=== PATIENT | female | born 1935 | race Caucasian/White ===

== ENCOUNTER 2017-06-26 16:17 | Inpatient (IN) | payer MEDICARE, OTHER ==
--- NOTE | 2017-06-26 17:06 | ED Physician Chart ---
ED Chief Complaint/HPI - Patient Information Date Seen:: 06/26/17 Time Seen:: 17:06 Chief Complaint:: Increased agitation, increased confusion History of Present Illness:: 81 yo female was brought by a caregiver from a care facility to ER for evaluation of increased agitation and confusion. She was noted to have aggressive behaviors toward other residents. Allergies:: Allergies Allergy/AdvReac Type Severity Reaction Status Date / Time No Known Allergies Allergy Verified 06/26/17 16:39 Vitals:: Vital Signs - 8 hr 06/26/17 16:43 Temp 98.3 F HR 64 RR 16 BP 128/63 O2 Sat % 97 ED Review of Systems - Review of Systems General/Constitutional: No fever, No chills Skin: No skin lesions Head: No headache Eyes: No loss of vision ENT: No earache Neck: No neck pain Cardio Vascular: No chest pain Pulmonary: No SOB GI: No nausea, No vomiting Musculoskeletal: No bone or joint pain Psychiatric: Prior psych history Neurological: No focal symptoms ED Past Medical History - Past Medical History Past Medical History: PUD/GERD, Dementia, Other (UTI, weakness, anxiety, insomnia, anemia) Social History: Non Smoker, No Alcohol, No Drug Use Family Medical History - Family Member Mother History Unknown: Yes ED Physical Exam - Physical Examination General/Constitutional: Awake Other Gen/Cons comments:: confused Head: Atraumatic Eyes: PERRL, EOMI Skin: No ecchymosis ENMT: Nasal exam nl Neck: No nuchal rigidity Respiratory: Clear to Auscultation, No Wheeze/Rhonchi/Rales Cardio Vascular: RRR, No murmur, gallop, rubs, NL S1 S2 GI: No tenderness/rebounding/guarding Extremities: No edema Neuro/Psych: No focal deficits ED Labs/Radiology/EKG Results - Radiology Results Results: CXR: no consolidation ED Assessment - Assessment General Assessment: Psychosis Dementia Critical Care Time: 30 min Excludes all billable procedures: Yes This condition life threatening/high prob of deterioration: No Assessment/Comments:: CBC, CMP, CXR Psych evaluation Admit to psych unit ED Septic Shock - . Is Septic Shock (SBP<90, OR Lactate>4 mmol\L) present?: No - <6hrs of presentation: Vital Signs: Vital Signs - 8 hr 06/26/17 16:43 Temp 98.3 F HR 64 RR 16 BP 128/63 O2 Sat % 97 ED Reassessment (Disposition) - Reassessment Reassessment Condition:: Unchanged - Patient Disposition Discharge/Transfer:: Acute Care w/in this hosp ED Discharge Plan - Patient Disposition Admit/Discharge/Transfer: Other Care w/in this hosp Condition at Disposition: Guarded
[2017-06-26 17:32] LABS: % BASOPHILS 0.8 % (0.0-2.0); % EOSINOPHILS 3.9 % (0.0-5.0); % MONOCYTES 9.5 % (2.0-10.0); % NEUTROPHILS 51.8 % (40.0-80.0); BASOPHILE ABSOLUTE 0.1 Th/cumm (0-0.2); EOSINOPHILE ABSOLUTE 0.3 Th/cmm (0.1-0.4); HEMATOCRIT 35.5 % (41.0-60); HEMOGLOBIN 11.9 gm/dL (12-16); LYMPHOCYTE ABSOLUTE 2.9 Th/cmm (1.5-3.0); MEAN CELL VOLUME 91.8 fl (81-100); MEAN CORPUSCULAR HEMOGLOBIN 30.8 pg (27.0-31.0); MEAN CORPUSCULAR HGB CONC 33.5 pg (28.0-36.0); MEAN PLATELET VOLUME 8.1 fl; MONOCYTE ABSOLUTE 0.8 Th/cmm (0.3-1.0); NEUTROPHILE ABSOLUTE 4.5 Th/cmm (1.8-8.0); PLATELET COUNT 252 Th/cmm (150-400); RED BLOOD COUNT 3.86 Mil/cmm (3.80-5.20); RED CELL DISTRIBUTION WIDTH 13.4 % (11.5-20.0); WHITE BLOOD COUNT 8.6 Th/cmm (4.8-10.8)
[2017-06-26 17:47] LABS: ALB/GLOB RATIO 1.5 (1.0-1.8); ALBUMIN 3.8 gm/dL (3.7-5.3); ALKALINE PHOSPHATASE 81 U/L (34-104); ANION GAP 9.3 (7.0-16.0); BILIRUBIN,TOTAL 0.3 mg/dL (0.3-1.0); BUN - UREA NITROGEN 28 mg/dL (7-25); CARBON DIOXIDE 28.9 mEq/L (21.0-31.0); CHLORIDE 102 mEq/L (98-107); CREATININE - SERUM 1.1 mg/dL (0.6-1.2); GLUCOSE 95 mg/dL (70-105); POTASSIUM SERUM 4.2 mEq/L (3.5-5.1); SGOT 16 U/L (13-39); SGPT/ALT 11 U/L (7-52); SODIUM SERUM 136 mEq/L (136-145); TOTAL PROTEIN,SERUM 6.4 gm/dL (6.0-8.3)
[2017-06-27 00:01] VITALS: BP 149/75
[2017-06-27] MEDS: Aspirin 81mg Chewable Tab PO SCH (08:46)
[2017-06-27] MEDS: Ferrous Sulfate 325 MG TAB PO SCH (08:46)
[2017-06-27] MEDS: Potassium Chloride Elixir 20 mEq /15 mL UDC PO SCH (08:48)
--- NOTE | 2017-06-27 10:03 | Diagnostic Imaging Report ---
Portable chest x-ray Time: 1739 hours HISTORY: Cough Allowing for portable technique the heart size is normal. No focal pulmonary parenchymal processes. No hilar or mediastinal abnormalities. Impression: No acute abnormalities.
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
[2017-06-27] MEDS: Prednisolone 1% Ophth Susp 5 mL Bottle EACH EYE SCH ×2 (12:42→16:44)
[2017-06-28] MEDS: Potassium Chloride Elixir 20 mEq /15 mL UDC PO SCH (09:11)
[2017-06-28] MEDS: Aspirin 81mg Chewable Tab PO SCH (09:13)
[2017-06-28] MEDS: Ferrous Sulfate 325 MG TAB PO SCH (09:13)
--- NOTE | 2017-06-28 09:13 | History and Physical ---
History of Present Illness - HPI Vital Signs: Last Vital Signs Temp 97.5 F 06/27/17 14:00 Pulse 63 06/27/17 20:00 Resp 20 06/27/17 20:00 BP 150/68 06/27/17 14:00 Pulse Ox 96 06/27/17 14:00 Family Medical History - Family Member Mother History Unknown: Yes - Medications Home Medications: Home Medication Medication Instructions Recorded Type Acetaminophen [Tylenol] 650 mg PO Q4HR PRN 06/26/17 History Ascorbic Acid [Vitamin C] 500 mg PO DAILY 06/26/17 History Aspirin [Aspirin Chewable] 81 mg PO DAILY 06/26/17 History Atropine 1% Ophth Soln [Isopto 1 drop EACH EYE DAILY 06/26/17 History Atropine 1% Ophth Soln] Citalopram Hydrobromide [Celexa*] 10 mg PO DAILY 06/26/17 History Donepezil Hcl [Aricept] 10 mg PO DAILY 06/26/17 History Esomeprazole Magnesium [Nexium] 40 mg PO DAILY 06/26/17 History Ferrous Sulfate [Iron] 325 mg PO DAILY 06/26/17 History Folic Acid [Folate*] 1 mg PO DAILY 06/26/17 History Furosemide [Lasix] 40 mg PO DAILY 06/26/17 History Lorazepam [Ativan] 0.5 mg PO QPM 06/26/17 History Losartan Potassium [Cozaar] 50 mg PO DAILY 06/26/17 History Memantine HCl [Namenda] 5 mg PO DAILY 06/26/17 History Potassium Chloride Elixir 15 meq PO DAILY 06/26/17 History Prednisolone 1% Ophth Susp [Pred 1 drop RIGHT EYE BID 06/26/17 History Forte 1% Ophth Susp] Trazodone HCl 100 mg PO HS 06/26/17 History - Allergies Allergies/Adverse Reactions: Allergies Allergy/AdvReac Type Severity Reaction Status Date / Time No Known Allergies Allergy Verified 06/26/17 16:39
[2017-06-28] MEDS: Prednisolone 1% Ophth Susp 5 mL Bottle EACH EYE SCH ×2 (09:16→17:11)
--- NOTE | 2017-06-28 13:15 | Progress Notes ---
DATE: 06/28/2017 SUBJECTIVE: The patient is seen on 06/28/2017. The patient believes she is here to "get x-rays." She continues to attest that she had somebody irritable, sleeping fairly well, not happy with the food. She is pretty isolative and withdrawn. The patient is with a diagnosis of dementia, poor historian. ASSESSMENT: The patient remains symptomatic, irritable, upset, history of fighting, increased confusion, agitation. MEDICATIONS: Reviewed including dosages and frequencies. PLAN: We will continue to monitor; given her ongoing symptoms, she is not safe for discharge. There are continued and overt safety concerns. [facility]# [id number]
[2017-06-29] MEDS: Aspirin 81mg Chewable Tab PO SCH (10:07)
[2017-06-29] MEDS: Ferrous Sulfate 325 MG TAB PO SCH (10:08)
[2017-06-29] MEDS: Potassium Chloride Elixir 20 mEq /15 mL UDC PO SCH (10:09)
[2017-06-29] MEDS: Prednisolone 1% Ophth Susp 5 mL Bottle EACH EYE SCH ×2 (10:09→17:17)
--- NOTE | 2017-06-29 10:48 | General Progress Note ---
Subjective - Review of Systems Events since last encounter: patient irritable in no distress Objective - Results Result Diagrams: 06/26/17 17:26 06/26/17 17:26 Recent Labs: Laboratory Last Values WBC 8.6 Th/cmm (4.8-10.8) 06/26/17 17:26 RBC 3.86 Mil/cmm (3.80-5.20) 06/26/17 17:26 Hgb 11.9 gm/dL (12-16) L 06/26/17 17:26 Hct 35.5 % (41.0-60) L 06/26/17 17:26 MCV 91.8 fl (81-100) 06/26/17 17: MCH 30.8 pg (27.0-31.0) 06/26/17 17: MCHC Differential 33.5 pg (28.0-36.0) 06/26/17 17: RDW 13.4 % (11.5-20.0) 06/26/17 17: Plt Count 252 Th/cmm (150-400) 06/26/17 17:26 MPV 8.1 fl 06/26/17 17:26 Neutrophils % 51.8 % (40.0-80.0) 06/26/17 17: Lymphocytes % 34.0 % (20.0-50.0) 06/26/17 17: Monocytes % 9.5 % (2.0-10.0) 06/26/17 17: Eosinophils % 3.9 % (0.0-5.0) 06/26/17 17: Basophils % 0.8 % (0.0-2.0) 06/26/17 17:26 Sodium 136 mEq/L (136-145) 06/26/17 17:26 Potassium 4.2 mEq/L (3.5-5.1) 06/26/17 17:26 Chloride 102 mEq/L (98-107) 06/26/17 17:26 Carbon Dioxide 28.9 mEq/L (21.0-31.0) 06/26/17 17:26 Anion Gap 9.3 (7.0-16.0) 06/26/17 17:26 BUN 28 mg/dL (7-25) H 06/26/17 17:26 Creatinine 1.1 mg/dL (0.6-1.2) 06/26/17 17:26 Est GFR ( Amer) TNP 06/26/17 17:26 Est GFR (Non-Af Amer) TNP 06/26/17 17:26 BUN/Creatinine Ratio 25.5 06/26/17 17:26 Glucose 95 mg/dL (70-105) 06/26/17 17:26 Calcium 9.0 mg/dL (8.6-10.3) 06/26/17 17:26 Total Bilirubin 0.3 mg/dL (0.3-1.0) 06/26/17 17:26 AST 16 U/L (13-39) 06/26/17 17:26 ALT 11 U/L (7-52) 06/26/17 17:26 Alkaline Phosphatase 81 U/L (34-104) 06/26/17 17:26 Total Protein 6.4 gm/dL (6.0-8.3) 06/26/17 17:26 Albumin 3.8 gm/dL (3.7-5.3) 06/26/17 17:26 Globulin 2.6 gm/dL 06/26/17 17:26 Albumin/Globulin Ratio 1.5 (1.0-1.8) 06/26/17 17:26 TSH 2.39 uIU/ml (0.34-5.60) 06/26/17 17:26 - Physical Exam Vitals and I&O: Vital Signs Temp 97.7 F 06/28/17 18:05 Pulse 85 06/29/17 10:08 Resp 20 06/28/17 20:00 BP 127/60 06/29/17 10:08 Pulse Ox 95 06/28/17 18:05 Intake & Output 06/28/17 06/29/17 06/29/17 18:59 06:59 18:59 Intake Total 900 Balance 900 Intake: Oral 900 Other: # Voids 4 # Bowel Movements 1 Stool Characteristics Soft Soft Formed Formed Active Medications: Current Medications Acetaminophen (Tylenol) 650 mg PO Q4HR PRN PRN Reason: Pain (Mild) Stop: 08/25/17 22:06 Ascorbic Acid (Vitamin C) 250 mg PO DAILY [facility] Stop: 08/26/17 08:59 Last Admin: 06/29/17 10:07 Dose: 250 mg Aspirin (Aspirin Chewable) 81 mg PO DAILY [facility]SE Stop: 08/26/17 08:59 Last Admin: 06/29/17 10:07 Dose: 81 mg Atropine Sulfate (Isopto Atropine 1% Ophth Soln) 1 drop EACH EYE DAILY [facility] Stop: 08/26/17 08:59 Last Admin: 06/29/17 10:18 Dose: 1 drop Citalopram Hydrobromide (Celexa) 10 mg PO DAILY [facility]UANJOSE Stop: 08/26/17 08:59 Last Admin: 06/29/17 10:05 Dose: 10 mg Donepezil HCl (Aricept) 10 mg PO DAILY [facility]SE Stop: 08/26/17 08:59 Last Admin: 06/29/17 10:08 Dose: 10 mg Ferrous Sulfate (Iron) 325 mg PO DAILY [facility]UANJOSE Stop: 08/26/17 08:59 Last Admin: 06/29/17 10:08 Dose: 325 mg Folic Acid (Folate) 1 mg PO DAILY JUANJOSE Stop: 08/26/17 08:59 Last Admin: 06/29/17 10:09 Dose: 1 mg Furosemide (Lasix) 40 mg PO DAILY JU[facility]JOSE Stop: 08/26/17 08:59 Last Admin: 06/29/17 10:07 Dose: 40 mg Lorazepam (Ativan) 0.5 mg PO QPM JUANJOSE PRN Reason: Protocol Stop: 08/26/17 16:59 Last Admin: 06/28/17 17:11 Dose: 0.5 mg Losartan Potassium (Cozaar) 50 mg PO DAILY [facility]SE Stop: 08/26/17 08:59 Last Admin: 06/29/17 10:08 Dose: 50 mg Memantine (Namenda) 5 mg PO DAILY [facility]JOSE Stop: 08/26/17 08:59 Last Admin: 06/29/17 10:07 Dose: 5 mg Potassium Chloride (Potassium Chloride Elixir) 20 meq PO DAILY [facility]UAN[facility]SE Stop: 08/26/17 08:59 Last Admin: 06/29/17 10:09 Dose: 20 meq Prednisolone Acetate (Pred Forte 1% Ophth Susp) 1 drop EACH EYE BID [facility]UANJOSE Stop: 08/26/17 08:59 Last Admin: 06/29/17 10:09 Dose: 1 drop Trazodone HCl (Desyrel) 100 mg PO HS JUANJOSE PRN Reason: Protocol Stop: 08/26/17 20:59 Last Admin: 06/28/17 21:12 Dose: 100 mg
--- NOTE | 2017-06-30 03:54 | Progress Notes ---
DATE: 06/29/2017 SUBJECTIVE: The patient was seen and evaluated. The patient's chart reviewed. I am covering for Dr. Carlson. IDENTIFYING DATA: This is a 81-year-old female. Overnight staff reported the patient continues to be very intrusive, cursing her staff, and only getting about six hours of sleep. Today, on [id number], the patient is very distraught, isolated, withdrawn, minimally interactive, and poor historian. MENTAL STATUS EXAMINATION: Disorganized, disheveled, poor memory impairment, poor insight, judgment, and impulse control. ASSESSMENT AND PLAN: A 81-year-old female with unspecified dementia with psychosis, unable to formulate a safe plan outside the structured environment. We will continue with primary psychiatrist's treatment plan and goals, which include Celexa 10 mg a day, benazepril 10 mg a day, Namenda 5 mg a day. [facility]# [id number]
--- NOTE | 2017-06-30 07:52 | Progress Notes ---
DATE: 06/30/2017 Chart reviewed and the patient interviewed. Also discussed the patient's condition with the staff and reviewed the records and labs. The patient is Yakut speaking and she is isolative and she is withdrawn. The patient also is still having episodes of agitation, irritability and striking out at staff. She also is still confused and she is still restless. Otherwise, the patient wants to be left alone. During exam the patient is disheveled. She is talking to self. She was not able to answer any of my questions coherently because of her confusion. ASSESSMENT: The patient is still agitated and can be dangerous to others. TREATMENT PLAN: We will continue monitoring her behavior and her condition closely. Also, we will continue citalopram, but will increase the dose to 20 mg, hopefully to calm the patient down. Also, continue to work on behavior modification and on her poor impulse control. Estimated length of stay 5-7 days. REASON FOR HOSPITALIZATION: The patient is still agitated and still needs close monitoring. JOB# [id number]
[2017-06-30] MEDS: Potassium Chloride Elixir 20 mEq /15 mL UDC PO SCH (09:06)
[2017-06-30] MEDS: Aspirin 81mg Chewable Tab PO SCH (09:07)
[2017-06-30] MEDS: Prednisolone 1% Ophth Susp 5 mL Bottle EACH EYE SCH ×2 (09:08→16:43)
[2017-06-30] MEDS: Ferrous Sulfate 325 MG TAB PO SCH (09:08)
--- NOTE | 2017-06-30 12:18 | Internal Medicine Prog Note ---
Internal Medicine Subjective - Subjective Service Date: 06/30/17 Patient seen and examined:: with staff Patient is:: awake, confused Per staff patient has:: no adverse event, tolerating meds Internal Medicine Objective - Results Result Diagrams: 06/26/17 17:26 06/26/17 17: Recent Labs: Laboratory Last Values WBC 8.6 Th/cmm (4.8-10.8) 06/26/17 17: RBC 3.86 Mil/cmm (3.80-5.20) 06/26/17 17:26 Hgb 11.9 gm/dL (12-16) L 06/26/17 17: Hct 35.5 % (41.0-60) L 06/26/17 17: MCV 91.8 fl (81-100) 06/26/17 17: MCH 30.8 pg (27.0-31.0) 06/26/17 17: MCHC Differential 33.5 pg (28.0-36.0) 06/26/17 17: RDW 13.4 % (11.5-20.0) 06/26/17 17: Plt Count 252 Th/cmm (150-400) 06/26/17 17: MPV 8.1 fl 06/26/17 17: Neutrophils % 51.8 % (40.0-80.0) 06/26/17 17: Lymphocytes % 34.0 % (20.0-50.0) 06/26/17 17: Monocytes % 9.5 % (2.0-10.0) 06/26/17 17: Eosinophils % 3.9 % (0.0-5.0) 06/26/17 17: Basophils % 0.8 % (0.0-2.0) 06/26/17 17:26 Sodium 136 mEq/L (136-145) 06/26/17 17:26 Potassium 4.2 mEq/L (3.5-5.1) 06/26/17 17:26 Chloride 102 mEq/L (98-107) 06/26/17 17: Carbon Dioxide 28.9 mEq/L (21.0-31.0) 06/26/17 17:26 Anion Gap 9.3 (7.0-16.0) 06/26/17 17:26 BUN 28 mg/dL (7-25) H 06/26/17 17:26 Creatinine 1.1 mg/dL (0.6-1.2) 06/26/17 17:26 Est GFR ( Amer) TNP 06/26/17 17:26 Est GFR (Non-Af Amer) TNP 06/26/17 17:26 BUN/Creatinine Ratio 25.5 06/26/17 17:26 Glucose 95 mg/dL (70-105) 06/26/17 17:26 Calcium 9.0 mg/dL (8.6-10.3) 06/26/17 17:26 Total Bilirubin 0.3 mg/dL (0.3-1.0) 06/26/17 17:26 AST 16 U/L (13-39) 06/26/17 17:26 ALT 11 U/L (7-52) 06/26/17 17:26 Alkaline Phosphatase 81 U/L (34-104) 06/26/17 17:26 Total Protein 6.4 gm/dL (6.0-8.3) 06/26/17 17:26 Albumin 3.8 gm/dL (3.7-5.3) 06/26/17 17:26 Globulin 2.6 gm/dL 06/26/17 17:26 Albumin/Globulin Ratio 1.5 (1.0-1.8) 06/26/17 17:26 TSH 2.39 uIU/ml (0.34-5.60) 06/26/17 17:26 - Physical Exam Vitals and I&O: Vital Signs Temp 97.4 F 06/30/17 06:53 Pulse 63 06/30/17 09:08 Resp 19 06/30/17 06:53 BP 133/60 06/30/17 09:08 Pulse Ox 94 06/30/17 06:53 Intake & Output 06/29/17 06/30/17 06/30/17 18:59 06:59 18:59 Intake Total 720 Balance 720 Intake: Oral 720 Other: # Voids 1 # Bowel Movements 0 Active Medications: Current Medications Acetaminophen (Tylenol) 650 mg PO Q4HR PRN PRN Reason: Pain (Mild) Stop: 08/25/17 22:06 Ascorbic Acid (Vitamin C) 250 mg PO DAILY [facility] Stop: 08/26/17 08:59 Last Admin: 06/30/17 09:08 Dose: 250 mg Aspirin (Aspirin Chewable) 81 mg PO DAILY [facility]UANJOSE Stop: 08/26/17 08:59 Last Admin: 06/30/17 09:07 Dose: 81 mg Atropine Sulfate (Isopto Atropine 1% Ophth Soln) 1 drop EACH EYE DAILY [facility] Stop: 08/26/17 08:59 Last Admin: 06/30/17 09:08 Dose: 1 drop Citalopram Hydrobromide (Celexa) 20 mg PO DAILY [facility]SE Stop: 08/29/17 07:20 Last Admin: 06/30/17 09:07 Dose: 20 mg Donepezil HCl (Aricept) 10 mg PO DAILY [facility]JOSE Stop: 08/26/17 08:59 Last Admin: 06/30/17 09:08 Dose: 10 mg Ferrous Sulfate (Iron) 325 mg PO DAILY [facility]UANJOSE Stop: 08/26/17 08:59 Last Admin: 06/30/17 09:08 Dose: 325 mg Folic Acid (Folate) 1 mg PO DAILY [facility]JOSE Stop: 08/26/17 08:59 Last Admin: 06/30/17 09:07 Dose: 1 mg Furosemide (Lasix) 40 mg PO DAILY [facility]SE Stop: 08/26/17 08:59 Last Admin: 06/30/17 09:07 Dose: 40 mg Lorazepam (Ativan) 0.5 mg PO QPM JUANJOSE PRN Reason: Protocol Stop: 08/26/17 16:59 Last Admin: 06/29/17 17:17 Dose: 0.5 mg Losartan Potassium (Cozaar) 50 mg PO DAILY [facility] Stop: 08/26/17 08:59 Last Admin: 06/30/17 09:08 Dose: 50 mg Memantine (Namenda) 5 mg PO DAILY [facility]SE Stop: 08/26/17 08:59 Last Admin: 06/30/17 09:07 Dose: 5 mg Potassium Chloride (Potassium Chloride Elixir) 20 meq PO DAILY [facility]SE Stop: 08/26/17 08:59 Last Admin: 06/30/17 09:06 Dose: 20 meq Prednisolone Acetate (Pred Forte 1% Ophth Susp) 1 drop EACH EYE BID [facility] Stop: 08/26/17 08:59 Last Admin: 06/30/17 09:08 Dose: 1 drop Trazodone HCl (Desyrel) 100 mg PO HS [facility]UANJOSE PRN Reason: Protocol Stop: 08/26/17 20:59 Last Admin: 06/29/17 21:42 Dose: Not Given General: weak, alert HEENT: NC/AT, PERRLA Neck: Supple Lungs: CTAB Cardiovascular: RRR, Normal S1, Normal S2, without murmur Abdomen: soft, non-tender, non-distended, positive bowel sound Neurological: alert Internal Medicine Assmt/Plan - Assessment Assessment: PUD/GERD Dementia weakness anxiety insomnia anemia) - Plan Plan: safety precautions cpm
--- NOTE | 2017-07-01 07:24 | Progress Notes ---
DATE: PSYCHIATRIC PROGRESS NOTE SUBJECTIVE: Chart reviewed and the patient interviewed. Also discussed the patient's condition with the staff and reviewed records and labs. The patient still have episodes of irritability and anger. The patient also is easily agitated. She also still needs redirections. Otherwise, the patient is calmer than before and she is compliant with taking her medications with no side effects of medications. ASSESSMENT: The patient is still agitated and in irritable mood and needs lots of redirections. TREATMENT PLAN: We will continue monitoring her behavior and her condition closely. Also, continue working on behavioral modification and her irritability. Also, we will continue adjusting psychotropic medications. Yesterday Celexa was increased to 20 mg every day with no side effects. ESTIMATED LENGTH OF STAY: 2-4 days. REASON FOR CONTINUED HOSPITALIZATION: The patient is still agitated and irritable. LABORATORIES: No new lab available for review. JOB# [id number]
[2017-07-01] MEDS: Ferrous Sulfate 325 MG TAB PO SCH (09:00)
[2017-07-01] MEDS: Prednisolone 1% Ophth Susp 5 mL Bottle EACH EYE SCH ×2 (09:00→17:58)
[2017-07-01] MEDS: Aspirin 81mg Chewable Tab PO SCH (09:00)
[2017-07-01] MEDS: Potassium Chloride Elixir 20 mEq /15 mL UDC PO SCH ×2 (09:05→09:48)
--- NOTE | 2017-07-01 15:05 | General Progress Note ---
Subjective - Review of Systems Events since last encounter: patient still irritable anxious Objective - Results Result Diagrams: 06/26/17 17:26 06/26/17 17:26 Recent Labs: Laboratory Last Values WBC 8.6 Th/cmm (4.8-10.8) 06/26/17 17:26 RBC 3.86 Mil/cmm (3.80-5.20) 06/26/17 17:26 Hgb 11.9 gm/dL (12-16) L 06/26/17 17:26 Hct 35.5 % (41.0-60) L 06/26/17 17:26 MCV 91.8 fl (81-100) 06/26/17 17: MCH 30.8 pg (27.0-31.0) 06/26/17 17: MCHC Differential 33.5 pg (28.0-36.0) 06/26/17 17: RDW 13.4 % (11.5-20.0) 06/26/17 17: Plt Count 252 Th/cmm (150-400) 06/26/17 17:26 MPV 8.1 fl 06/26/17 17:26 Neutrophils % 51.8 % (40.0-80.0) 06/26/17 17: Lymphocytes % 34.0 % (20.0-50.0) 06/26/17 17: Monocytes % 9.5 % (2.0-10.0) 06/26/17 17: Eosinophils % 3.9 % (0.0-5.0) 06/26/17 17: Basophils % 0.8 % (0.0-2.0) 06/26/17 17:26 Sodium 136 mEq/L (136-145) 06/26/17 17:26 Potassium 4.2 mEq/L (3.5-5.1) 06/26/17 17:26 Chloride 102 mEq/L (98-107) 06/26/17 17:26 Carbon Dioxide 28.9 mEq/L (21.0-31.0) 06/26/17 17:26 Anion Gap 9.3 (7.0-16.0) 06/26/17 17:26 BUN 28 mg/dL (7-25) H 06/26/17 17:26 Creatinine 1.1 mg/dL (0.6-1.2) 06/26/17 17:26 Est GFR ( Amer) TNP 06/26/17 17:26 Est GFR (Non-Af Amer) TNP 06/26/17 17:26 BUN/Creatinine Ratio 25.5 06/26/17 17:26 Glucose 95 mg/dL (70-105) 06/26/17 17:26 Calcium 9.0 mg/dL (8.6-10.3) 06/26/17 17:26 Total Bilirubin 0.3 mg/dL (0.3-1.0) 06/26/17 17:26 AST 16 U/L (13-39) 06/26/17 17:26 ALT 11 U/L (7-52) 06/26/17 17:26 Alkaline Phosphatase 81 U/L (34-104) 06/26/17 17:26 Total Protein 6.4 gm/dL (6.0-8.3) 06/26/17 17:26 Albumin 3.8 gm/dL (3.7-5.3) 06/26/17 17:26 Globulin 2.6 gm/dL 06/26/17 17:26 Albumin/Globulin Ratio 1.5 (1.0-1.8) 06/26/17 17:26 TSH 2.39 uIU/ml (0.34-5.60) 06/26/17 17:26 - Physical Exam Vitals and I&O: Vital Signs Temp 97.6 F 06/30/17 20:48 Pulse 74 06/30/17 20:48 Resp 16 06/30/17 20:48 BP 136/76 06/30/17 20:48 Pulse Ox 96 06/30/17 20:48 Intake & Output 06/30/17 07/01/17 07/01/17 18:59 06:59 18:59 Intake Total 1800 240 Balance 1800 240 Intake: Oral 1800 240 Other: # Voids 4 3 # Bowel Movements 1 0 Active Medications: Current Medications Acetaminophen (Tylenol) 650 mg PO Q4HR PRN PRN Reason: Pain (Mild) Stop: 08/25/17 22:06 Ascorbic Acid (Vitamin C) 250 mg PO DAILY [facility] Stop: 08/26/17 08:59 Last Admin: 07/01/17 09:00 Dose: 250 mg Aspirin (Aspirin Chewable) 81 mg PO DAILY [facility] Stop: 08/26/17 08:59 Last Admin: 07/01/17 09:00 Dose: 81 mg Atropine Sulfate (Isopto Atropine 1% Ophth Soln) 1 drop EACH EYE DAILY [facility] Stop: 08/26/17 08:59 Last Admin: 07/01/17 09:00 Dose: 1 drop Citalopram Hydrobromide (Celexa) 20 mg PO DAILY [facility] Stop: 08/29/17 07:20 Last Admin: 07/01/17 09:00 Dose: 20 mg Donepezil HCl (Aricept) 10 mg PO DAILY [facility] Stop: 08/26/17 08:59 Last Admin: 07/01/17 09:00 Dose: 10 mg Ferrous Sulfate (Iron) 325 mg PO DAILY [facility] Stop: 08/26/17 08:59 Last Admin: 07/01/17 09:00 Dose: 325 mg Folic Acid (Folate) 1 mg PO DAILY [facility] Stop: 08/26/17 08:59 Last Admin: 07/01/17 09:00 Dose: 1 mg Furosemide (Lasix) 40 mg PO DAILY [facility] Stop: 08/26/17 08:59 Last Admin: 07/01/17 09:00 Dose: Not Given Lorazepam (Ativan) 0.5 mg PO QPM [facility] PRN Reason: Protocol Stop: 08/26/17 16:59 Last Admin: 06/30/17 16:43 Dose: 0.5 mg Losartan Potassium (Cozaar) 50 mg PO DAILY [facility] Stop: 08/26/17 08:59 Last Admin: 07/01/17 09:00 Dose: Not Given Memantine (Namenda) 5 mg PO DAILY [facility] Stop: 08/26/17 08:59 Last Admin: 07/01/17 09:00 Dose: 5 mg Potassium Chloride (Potassium Chloride Elixir) 20 meq PO DAILY [facility] Stop: 08/26/17 08:59 Last Admin: 07/01/17 09:05 Dose: Not Given Prednisolone Acetate (Pred Forte 1% Ophth Susp) 1 drop EACH EYE BID [facility] Stop: 08/26/17 08:59 Last Admin: 07/01/17 09:00 Dose: 1 drop Trazodone HCl (Desyrel) 100 mg PO HS [facility] PRN Reason: Protocol Stop: 08/26/17 20:59 Last Admin: 06/30/17 21:09 Dose: 100 mg General: No acute distress HEENT: Atraumatic Cardiovascular: Regular rate, Normal S1, Normal S2 Lungs: Clear to auscultation Abdomen: Bowel sounds Assessment/Plan - Problem List Patient Problems: All Active Problems Agitation (Acute) R45.1 Irritable (Acute) - Plan Plan: as per psych as problems arise will monitor Nutritional Asmnt/Malnutr-PDOC - Dietary Evaluation Malnutrition Findings (Please click <Entered> for more info): Nutritional Asmnt/Malnutrition Start: 07/01/17 13: 22 Text: Status: Complete Freq: Document 07/01/17 13:22 LCHENG (Rec: 07/01/17 13:32 LCHENG [email or web address]) Nutritional Asmnt/Malnutrition Patient General Information Nutritional Screening Moderate Risk Diagnosis psychosis NOS Pertinent Medical Hx/Surgical Hx PUD/GERD, dementia, UTI, weakness, anxiety, insomnia, anemia Subjective Information Pt seen resting in bed during the time of visit, lunch tray at bedside. Pt appeared not in mood to eat lunch at this time. Spoke with nurse, pt usually eats well by herself. Per notes, PO intake 50-100% Current Diet Order/ Nutrition Support Mechanical soft ground, CHRISTIAN Pertinent Medications vitamin C, Iron, folate, lasix , Kcl Pertinent Labs 06/26 Na, 136, K 4.2, Cl 102, BUN 28, Cr 1.1, Ca 9.0, Alb 3. 8 Nutritional Hx/Data Height 1.63 m Height (Calculated Centimeters) 162.6 Current Weight (lbs) 77.111 kg Weight (Calculated Kilograms) 77.1 Weight (Calculated Grams) 08145.7 [place] Body Weight 120 % [place] Body Weight 142 Body Mass Index (BMI) 29.2 Weight Status Overweight GI Symptoms GI Symptoms None Last BM 06/30 Difficult in: None Skin Integrity/Comment: intact Current %PO Good (75-100%) Estimated Nutritional Goals BEE in Kcals: Adj wt of IBW Calories/Kcals/Kg 25-30 Kcals Calculated 1500-1800kcal based on adj wt 60kg Protein: Adj wt of IBW Protein g/k Protein Calculated 60 Fluid: ml 1500-1800ml (1ml/kcal) Nutritional Problem No current Nutrition Prob Problem no nutrition problem at this time Malnutrition Alert Protein-Calorie Malnutrition N/A Is there a minimum of two criteria No selected? Query Text:Check all the applicable criteria. A minimum of two criteria are recommended for diagnosis of either severe or non-severe malnutrition. Intervention/Recommendation Comments 1. Continue with current diet as ordered. 2. Monitor PO intake, wt, labs and skin integrity 3. F/U as low risk in 7 days, 1/3 Expected Outcomes/Goals Expected Outcomes/Goals 1. PO intake to meet at least 75% of nutritional needs. 2. Wt stability, skin to remain intact, labs to approach WNL.
--- NOTE | 2017-07-02 09:01 | General Progress Note ---
Subjective - Review of Systems Events since last encounter: no change Objective - Results Result Diagrams: 06/26/17 17:26 06/26/17 17:26 Recent Labs: Laboratory Last Values WBC 8.6 Th/cmm (4.8-10.8) 06/26/17 17:26 RBC 3.86 Mil/cmm (3.80-5.20) 06/26/17 17:26 Hgb 11.9 gm/dL (12-16) L 06/26/17 17: Hct 35.5 % (41.0-60) L 06/26/17 17:26 MCV 91.8 fl (81-100) 06/26/17 17: MCH 30.8 pg (27.0-31.0) 06/26/17 17: MCHC Differential 33.5 pg (28.0-36.0) 06/26/17 17: RDW 13.4 % (11.5-20.0) 06/26/17 17: Plt Count 252 Th/cmm (150-400) 06/26/17 17: MPV 8.1 fl 06/26/17 17:26 Neutrophils % 51.8 % (40.0-80.0) 06/26/17 17: Lymphocytes % 34.0 % (20.0-50.0) 06/26/17 17: Monocytes % 9.5 % (2.0-10.0) 06/26/17 17: Eosinophils % 3.9 % (0.0-5.0) 06/26/17 17: Basophils % 0.8 % (0.0-2.0) 06/26/17 17:26 Sodium 136 mEq/L (136-145) 06/26/17 17:26 Potassium 4.2 mEq/L (3.5-5.1) 06/26/17 17:26 Chloride 102 mEq/L (98-107) 06/26/17 17:26 Carbon Dioxide 28.9 mEq/L (21.0-31.0) 06/26/17 17:26 Anion Gap 9.3 (7.0-16.0) 06/26/17 17:26 BUN 28 mg/dL (7-25) H 06/26/17 17:26 Creatinine 1.1 mg/dL (0.6-1.2) 06/26/17 17:26 Est GFR ( Amer) TNP 06/26/17 17:26 Est GFR (Non-Af Amer) TNP 06/26/17 17:26 BUN/Creatinine Ratio 25.5 06/26/17 17:26 Glucose 95 mg/dL (70-105) 06/26/17 17:26 Calcium 9.0 mg/dL (8.6-10.3) 06/26/17 17:26 Total Bilirubin 0.3 mg/dL (0.3-1.0) 06/26/17 17:26 AST 16 U/L (13-39) 06/26/17 17:26 ALT 11 U/L (7-52) 06/26/17 17:26 Alkaline Phosphatase 81 U/L (34-104) 06/26/17 17:26 Total Protein 6.4 gm/dL (6.0-8.3) 06/26/17 17:26 Albumin 3.8 gm/dL (3.7-5.3) 06/26/17 17:26 Globulin 2.6 gm/dL 06/26/17 17:26 Albumin/Globulin Ratio 1.5 (1.0-1.8) 06/26/17 17:26 TSH 2.39 uIU/ml (0.34-5.60) 06/26/17 17:26 - Physical Exam Vitals and I&O: Vital Signs Temp 97.6 F 06/30/17 20:48 Pulse 74 06/30/17 20:48 Resp 16 06/30/17 20:48 BP 136/76 06/30/17 20:48 Pulse Ox 96 06/30/17 20:48 Active Medications: Current Medications Acetaminophen (Tylenol) 650 mg PO Q4HR PRN PRN Reason: Pain (Mild) Stop: 08/25/17 22:06 Ascorbic Acid (Vitamin C) 250 mg PO DAILY [facility] Stop: 08/26/17 08:59 Last Admin: 07/01/17 09:00 Dose: 250 mg Aspirin (Aspirin Chewable) 81 mg PO DAILY [facility] Stop: 08/26/17 08:59 Last Admin: 07/01/17 09:00 Dose: 81 mg Atropine Sulfate (Isopto Atropine 1% [facility]) 1 drop EACH EYE DAILY [facility] Stop: 08/26/17 08:59 Last Admin: 07/01/17 09:00 Dose: 1 drop Citalopram Hydrobromide (Celexa) 20 mg PO DAILY [facility] Stop: 08/29/17 07:20 Last Admin: 07/01/17 09:00 Dose: 20 mg Donepezil HCl (Aricept) 10 mg PO DAILY [facility] Stop: 08/26/17 08:59 Last Admin: 07/01/17 09:00 Dose: 10 mg Ferrous Sulfate (Iron) 325 mg PO DAILY [facility] Stop: 08/26/17 08:59 Last Admin: 07/01/17 09:00 Dose: 325 mg Folic Acid (Folate) 1 mg PO DAILY [facility] Stop: 08/26/17 08:59 Last Admin: 07/01/17 09:00 Dose: 1 mg Furosemide (Lasix) 40 mg PO DAILY [facility] Stop: 08/26/17 08:59 Last Admin: 07/01/17 09:00 Dose: Not Given Lorazepam (Ativan) 0.5 mg PO QPM [facility] PRN Reason: Protocol Stop: 08/26/17 16:59 Last Admin: 07/01/17 17:56 Dose: 0.5 mg Losartan Potassium (Cozaar) 50 mg PO DAILY [facility] Stop: 08/26/17 08:59 Last Admin: 07/01/17 09:00 Dose: Not Given Memantine (Namenda) 5 mg PO DAILY [facility] Stop: 08/26/17 08:59 Last Admin: 07/01/17 09:00 Dose: 5 mg Potassium Chloride (Potassium Chloride Elixir) 20 meq PO DAILY [facility] Stop: 08/26/17 08:59 Last Admin: 07/01/17 09:05 Dose: Not Given Prednisolone Acetate (Pred Forte 1% Ophth Susp) 1 drop EACH EYE BID [facility] Stop: 08/26/17 08:59 Last Admin: 07/01/17 17:58 Dose: 1 drop Trazodone HCl (Desyrel) 100 mg PO HS [facility]SE PRN Reason: Protocol Stop: 08/26/17 20:59 Last Admin: 07/01/17 21:15 Dose: 100 mg General: No acute distress HEENT: Atraumatic Cardiovascular: Regular rate, Normal S1, Normal S2 Lungs: Clear to auscultation Abdomen: Bowel sounds Assessment/Plan - Problem List Patient Problems: All Active Problems Agitation (Acute) R45.1 Irritable (Acute) - Plan Plan: as per psych as problems arise will monitor Nutritional Asmnt/Malnutr-PDOC - Dietary Evaluation Malnutrition Findings (Please click <Entered> for more info): Nutritional Asmnt/Malnutrition Start: 07/01/17 13: 22 Text: Status: Complete Freq: Document 07/01/17 13:22 LCLINDAG (Rec: 07/01/17 13:32 LCHENG [email or web address]) Nutritional Asmnt/Malnutrition Patient General Information Nutritional Screening Moderate Risk Diagnosis psychosis NOS Pertinent Medical Hx/Surgical Hx PUD/GERD, dementia, UTI, weakness, anxiety, insomnia, anemia Subjective Information Pt seen resting in bed during the time of visit, lunch tray at bedside. Pt appeared not in mood to eat lunch at this time. Spoke with nurse, pt usually eats well by herself. Per notes, PO intake 50-100% Current Diet Order/ Nutrition Support Mechanical soft ground, CHRISTIAN Pertinent Medications vitamin C, Iron, folate, lasix , Kcl Pertinent Labs 06/26 Na, 136, K 4.2, Cl 102, BUN 28, Cr 1.1, Ca 9.0, Alb 3. 8 Nutritional Hx/Data Height 1.63 m Height (Calculated Centimeters) 162.6 Current Weight (lbs) 77.111 kg Weight (Calculated Kilograms) 77.1 Weight (Calculated Grams) 93015.7 [place] Body Weight 120 % [place] Body Weight 142 Body Mass Index (BMI) 29.2 Weight Status Overweight GI Symptoms GI Symptoms None Last BM 06/30 Difficult in: None Skin Integrity/Comment: intact Current %PO Good (75-100%) Estimated Nutritional Goals BEE in Kcals: Adj wt of IBW Calories/Kcals/Kg 25-30 Kcals Calculated 1500-1800kcal based on adj wt 60kg Protein: Adj wt of IBW Protein g/k Protein Calculated 60 Fluid: ml 1500-1800ml (1ml/kcal) Nutritional Problem No current Nutrition Prob Problem no nutrition problem at this time Malnutrition Alert Protein-Calorie Malnutrition N/A Is there a minimum of two criteria No selected? Query Text:Check all the applicable criteria. A minimum of two criteria are recommended for diagnosis of either severe or non-severe malnutrition. Intervention/Recommendation Comments 1. Continue with current diet as ordered. 2. Monitor PO intake, wt, labs and skin integrity 3. F/U as low risk in 7 days, 1/3 Expected Outcomes/Goals Expected Outcomes/Goals 1. PO intake to meet at least 75% of nutritional needs. 2. Wt stability, skin to remain intact, labs to approach WNL.
[2017-07-02] MEDS: Ferrous Sulfate 325 MG TAB PO SCH (09:42)
[2017-07-02] MEDS: Aspirin 81mg Chewable Tab PO SCH (09:43)
[2017-07-02] MEDS: Potassium Chloride Elixir 20 mEq /15 mL UDC PO SCH (09:46)
[2017-07-02] MEDS: Prednisolone 1% Ophth Susp 5 mL Bottle EACH EYE SCH ×2 (09:46→17:41)
--- NOTE | 2017-07-02 21:31 | Internal Medicine Prog Note ---
Internal Medicine Subjective - Subjective Service Date: 07/02/17 Patient is:: awake, confused Per staff patient has:: no adverse event, tolerating meds Internal Medicine Objective - Results Result Diagrams: 06/26/17 17:26 06/26/17 17: Recent Labs: Laboratory Last Values WBC 8.6 Th/cmm (4.8-10.8) 06/26/17 17: RBC 3.86 Mil/cmm (3.80-5.20) 06/26/17 17:26 Hgb 11.9 gm/dL (12-16) L 06/26/17 17:26 Hct 35.5 % (41.0-60) L 06/26/17 17: MCV 91.8 fl (81-100) 06/26/17 17: MCH 30.8 pg (27.0-31.0) 06/26/17 17: MCHC Differential 33.5 pg (28.0-36.0) 06/26/17 17: RDW 13.4 % (11.5-20.0) 06/26/17 17: Plt Count 252 Th/cmm (150-400) 06/26/17 17:26 MPV 8.1 fl 06/26/17 17: Neutrophils % 51.8 % (40.0-80.0) 06/26/17 17: Lymphocytes % 34.0 % (20.0-50.0) 06/26/17 17: Monocytes % 9.5 % (2.0-10.0) 06/26/17 17: Eosinophils % 3.9 % (0.0-5.0) 06/26/17 17: Basophils % 0.8 % (0.0-2.0) 06/26/17 17:26 Sodium 136 mEq/L (136-145) 06/26/17 17:26 Potassium 4.2 mEq/L (3.5-5.1) 06/26/17 17: Chloride 102 mEq/L (98-107) 06/26/17 17:26 Carbon Dioxide 28.9 mEq/L (21.0-31.0) 06/26/17 17:26 Anion Gap 9.3 (7.0-16.0) 06/26/17 17:26 BUN 28 mg/dL (7-25) H 06/26/17 17:26 Creatinine 1.1 mg/dL (0.6-1.2) 06/26/17 17:26 Est GFR ( Amer) TNP 06/26/17 17:26 Est GFR (Non-Af Amer) TNP 06/26/17 17:26 BUN/Creatinine Ratio 25.5 06/26/17 17:26 Glucose 95 mg/dL (70-105) 06/26/17 17:26 Calcium 9.0 mg/dL (8.6-10.3) 06/26/17 17:26 Total Bilirubin 0.3 mg/dL (0.3-1.0) 06/26/17 17:26 AST 16 U/L (13-39) 06/26/17 17:26 ALT 11 U/L (7-52) 06/26/17 17:26 Alkaline Phosphatase 81 U/L (34-104) 06/26/17 17:26 Total Protein 6.4 gm/dL (6.0-8.3) 06/26/17 17:26 Albumin 3.8 gm/dL (3.7-5.3) 06/26/17 17:26 Globulin 2.6 gm/dL 06/26/17 17:26 Albumin/Globulin Ratio 1.5 (1.0-1.8) 06/26/17 17:26 TSH 2.39 uIU/ml (0.34-5.60) 06/26/17 17:26 - Physical Exam Vitals and I&O: Vital Signs Temp 98.8 F 07/02/17 15:15 Pulse 77 07/02/17 15:15 Resp 20 07/02/17 15:15 BP 109/47 07/02/17 15:15 Pulse Ox 96 07/02/17 15:15 Active Medications: Current Medications Acetaminophen (Tylenol) 650 mg PO Q4HR PRN PRN Reason: Pain (Mild) Stop: 08/25/17 22:06 Ascorbic Acid (Vitamin C) 250 mg PO DAILY [facility] Stop: 08/26/17 08:59 Last Admin: 07/02/17 09:42 Dose: 250 mg Aspirin (Aspirin Chewable) 81 mg PO DAILY [facility] Stop: 08/26/17 08:59 Last Admin: 07/02/17 09:43 Dose: 81 mg Atropine Sulfate (Isopto Atropine 1% Ophth Soln) 1 drop EACH EYE DAILY [facility] Stop: 08/26/17 08:59 Last Admin: 07/02/17 09:40 Dose: 1 drop Citalopram Hydrobromide (Celexa) 20 mg PO DAILY [facility] Stop: 08/29/17 07:20 Last Admin: 07/02/17 09:42 Dose: 20 mg Donepezil HCl (Aricept) 10 mg PO DAILY [facility] Stop: 08/26/17 08:59 Last Admin: 07/02/17 09:43 Dose: 10 mg Ferrous Sulfate (Iron) 325 mg PO DAILY [facility] Stop: 08/26/17 08:59 Last Admin: 07/02/17 09:42 Dose: 325 mg Folic Acid (Folate) 1 mg PO DAILY [facility] Stop: 08/26/17 08:59 Last Admin: 07/02/17 09:44 Dose: 1 mg Furosemide (Lasix) 40 mg PO DAILY [facility] Stop: 08/26/17 08:59 Last Admin: 07/02/17 09:44 Dose: 40 mg Lorazepam (Ativan) 0.5 mg PO QPM [facility]SE PRN Reason: Protocol Stop: 08/26/17 16:59 Last Admin: 07/02/17 17:40 Dose: Not Given Losartan Potassium (Cozaar) 50 mg PO DAILY [facility] Stop: 08/26/17 08:59 Last Admin: 07/02/17 09:44 Dose: 50 mg Memantine (Namenda) 5 mg PO DAILY [facility] Stop: 08/26/17 08:59 Last Admin: 07/02/17 09:44 Dose: 5 mg Potassium Chloride (Potassium Chloride Elixir) 20 meq PO DAILY [facility] Stop: 08/26/17 08:59 Last Admin: 07/02/17 09:46 Dose: 20 meq Prednisolone Acetate (Pred Forte 1% Ophth Susp) 1 drop EACH EYE BID [facility] Stop: 08/26/17 08:59 Last Admin: 07/02/17 17:41 Dose: 1 drop Trazodone HCl (Desyrel) 100 mg PO HS [facility]UANJOSE PRN Reason: Protocol Stop: 08/26/17 20:59 Last Admin: 07/02/17 21:18 Dose: 100 mg General: weak, alert HEENT: NC/AT, PERRLA Neck: Supple Lungs: CTAB Cardiovascular: RRR, Normal S1, Normal S2, without murmur Abdomen: soft, non-tender, non-distended, positive bowel sound Neurological: alert Internal Medicine Assmt/Plan - Assessment Assessment: PUD/GERD Dementia weakness anxiety insomnia anemia) - Plan Plan: safety precautions cpm Nutritional Asmnt/Malnutr-PDOC - Dietary Evaluation Malnutrition Findings (Please click <Entered> for more info): Nutritional Asmnt/Malnutrition Start: 07/01/17 13: 22 Text: Status: Complete Freq: Document 07/01/17 13:22 [facility] (Rec: 07/01/17 13:32 HEN [email or web address]) Nutritional Asmnt/Malnutrition Patient General Information Nutritional Screening Moderate Risk Diagnosis psychosis NOS Pertinent Medical Hx/Surgical Hx PUD/GERD, dementia, UTI, weakness, anxiety, insomnia, anemia Subjective Information Pt seen resting in bed during the time of visit, lunch tray at bedside. Pt appeared not in mood to eat lunch at this time. Spoke with nurse, pt usually eats well by herself. Per notes, PO intake 50-100% Current Diet Order/ Nutrition Support Mechanical soft ground, CHRISTIAN Pertinent Medications vitamin C, Iron, folate, lasix , Kcl Pertinent Labs 06/26 Na, 136, K 4.2, Cl 102, BUN 28, Cr 1.1, Ca 9.0, Alb 3. 8 Nutritional Hx/Data Height 5 ft 4 in Height (Calculated Centimeters) 162.6 Current Weight (lbs) 170 lb Weight (Calculated Kilograms) 77.1 Weight (Calculated Grams) 25444.7 [place] Body Weight 120 % [place] Body Weight 142 Body Mass Index (BMI) 29.2 Weight Status Overweight GI Symptoms GI Symptoms None Last BM 06/30 Difficult in: None Skin Integrity/Comment: intact Current %PO Good (75-100%) Estimated Nutritional Goals BEE in Kcals: Adj wt of IBW Calories/Kcals/Kg 25-30 Kcals Calculated 1500-1800kcal based on adj wt 60kg Protein: Adj wt of IBW Protein g/k Protein Calculated 60 Fluid: ml 1500-1800ml (1ml/kcal) Nutritional Problem No current Nutrition Prob Problem no nutrition problem at this time Malnutrition Alert Protein-Calorie Malnutrition N/A Is there a minimum of two criteria No selected? Query Text:Check all the applicable criteria. A minimum of two criteria are recommended for diagnosis of either severe or non-severe malnutrition. Intervention/Recommendation Comments 1. Continue with current diet as ordered. 2. Monitor PO intake, wt, labs and skin integrity 3. F/U as low risk in 7 days, 1/3 Expected Outcomes/Goals Expected Outcomes/Goals 1. PO intake to meet at least 75% of nutritional needs. 2. Wt stability, skin to remain intact, labs to approach WNL.
--- NOTE | 2017-07-03 01:44 | Progress Notes ---
DATE: 07/02/2017 SUBJECTIVE: Chart reviewed and the patient interviewed. Also discussed the patient's condition with the staff and reviewed records and labs. The patient seems to be slightly calmer than before and she seems to be less irritable and less agitated. She also is still acting slightly more. She seems to be slightly suspicious and slightly paranoid, but her mood is less angry. ASSESSMENT: Will continue current treatment and medications. TREATMENT PLAN: Continue current treatment. PLAN: To discharge the patient when more stable. [facility]# [id number]
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
[2017-07-03] MEDS: Aspirin 81mg Chewable Tab PO SCH (09:00)
[2017-07-03] MEDS: Ferrous Sulfate 325 MG TAB PO SCH (09:07)
[2017-07-03] MEDS: Prednisolone 1% Ophth Susp 5 mL Bottle EACH EYE SCH ×2 (09:20→16:43)
== END 2017-07-03 19:30 | disposition home or self-care (01) | DRG 885 ==
LOC: ER 16:17 → UNDOADMIN 20:30 → GERO 20:30
PROVIDERS: ADMIT Psychiatry & Neurology Psychiatry; ATTEND Psychiatry & Neurology Psychiatry
DX: F29 Unspecified psychosis not due to a substance or known physiological condition (principal); F03.91 Unspecified dementia, unspecified severity, with behavioral disturbance; D64.9 Anemia, unspecified; F39 Unspecified mood [affective] disorder; K27.9 Peptic ulcer, site unspecified, unspecified as acute or chronic, without hemorrhage or perforation; K21.9 Gastro-esophageal reflux disease without esophagitis; F41.9 Anxiety disorder, unspecified; G47.00 Insomnia, unspecified
CPT/HCPCS: 36415-UA; 71010-TC; 80053-TC; 84443-TC; 85025-TC; 93005; J2650; Z7610